=== PATIENT | male | born 1990 | race African-American/Black ===

== ENCOUNTER 2024-03-17 18:44 | Emergency (ER) | payer OTHER ==
[~2024-03-17] VITALS: Ht 172.7 cm; Wt 68.0 kg
[2024-03-17 19:30] VITALS: BP 120/86; PULSE 89; RESP 18; O2SAT 100
== END 2024-03-17 19:50 | disposition home or self-care (01) ==
LOC: EDBD 18:44 → ER 18:44
DX: F10.10 Alcohol abuse, uncomplicated (principal); F12.10 Cannabis abuse, uncomplicated; F41.9 Anxiety disorder, unspecified; Y90.8 Blood alcohol level of 240 mg/100 ml or more

== ENCOUNTER 2024-12-05 01:10 | Emergency (ER) | payer OTHER ==
[~2024-12-05] VITALS: Ht 172.7 cm; Wt 71.0 kg
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
[2024-12-05 02:31] VITALS: BP 101/64; PULSE 59; RESP 18; TEMP 97.8; O2SAT 95
[2024-12-05] MEDS ORDERED: COROSUS LEFT EAR (02:33)
[2024-12-05] MEDS: DexAMETHasone SOD PHOS 10MG/1ML VIAL INJ IM ONE (02:44)
[2024-12-05] MEDS: KETOROLAC TROMETH 60MG/2ML VIAL IM ONE (02:44)
== END 2024-12-05 03:05 | disposition home or self-care (01) ==
LOC: ER 01:10
DX: H60.92 Unspecified otitis externa, left ear (principal); G44.309 Post-traumatic headache, unspecified, not intractable; F12.10 Cannabis abuse, uncomplicated
CPT/HCPCS: 96372; 99284; J1100; J1885